=== PATIENT | female | born 1995 | race Caucasian/White ===

== ENCOUNTER 2017-07-06 15:12 | Emergency (ER) | payer OTHER ==
[2017-07-06 15:39] VITALS: TEMP 98.8
--- NOTE | 2017-07-06 16:17 | EDPHY ---
H & P Stated Complaint: L LOWER ABD PAIN/TREATED WITH LAXATIVES FROM [facility] Time Seen by Provider: 07/06/17 16:14 HPI/ROS: CHIEF COMPLAINT: Lower abdominal pain HISTORY OF PRESENT ILLNESS: The patient presents to the ED with acutely worsening chronic lower abdominal pain. The patient reports she has been struggling with symptoms for months. They have acutely worsened over the past several days. She was seen at the [facility] and had unremarkable laboratory testing, a normal urinalysis, negative test, negative GC and chlamydia test and negative pelvic exam. The patient had an abdominal x-ray which demonstrated possible constipation. She has been treated with laxatives for the past 2 days. The patient states in that time the pain has been more constant. It is localized to the hypogastric area and does radiate to the right mid quadrant and left mid quadrant. She denies vaginal bleeding or discharge. She denies additional symptoms of diarrhea. The patient denies significant past medical history. She has no history of abdominal surgery. REVIEW OF SYSTEMS: A comprehensive 10 point review of systems is otherwise negative aside from elements mentioned in the history of present illness. Source: Patient Exam Limitations: No limitations - Personal History LMP (Females 10-55): 1-7 Days Ago Current Tetanus/Diphtheria Vaccine: Yes - Medical/Surgical History Hx Asthma: No Hx Chronic Respiratory Disease: No Hx Diabetes: No Hx Cardiac Disease: No Hx Renal Disease: No Hx Cirrhosis: No Hx Alcoholism: No Hx HIV/AIDS: No Hx Splenectomy or Spleen Trauma: No Other PMH: none - Social History Smoking Status: Never smoked - Physical Exam Exam: General Appearance: Alert, no distress Eyes: Pupils equal and round no pallor or injection ENT, Mouth: Mucous membranes moist Respiratory: There are no retractions, lungs are clear to auscultation Cardiovascular: Regular rate and rhythm Gastrointestinal: Mild tenderness to palpation noted in the right mid quadrant , central abdomen left mid quadrant, no lower pelvic tenderness appreciated Neurological: A&O, normal motor function, normal sensory exam, normal cranial nerves Skin: Warm and dry, no rashes Musculoskeletal: Neck is supple nontender Extremities: symmetrical, full range of motion Constitutional: Initial Vital Signs Temperature (C) 37.1 C 07/06/17 15:36 Heart Rate 87 07/06/17 15:36 Respiratory Rate 18 07/06/17 15:36 Blood Pressure 103/73 07/06/17 15:36 O2 Sat (%) 96 07/06/17 15:36 O2 Delivery Mode Room Air Allergies/Adverse Reactions: No Known Allergies Allergy (Verified 07/06/17 15:35) Home Medications: Medication Instructions Recorded Dicyclomine [Bentyl 10 MG (*)] 10 mg PO QID PRN #20 cap 07/06/17 Sprintec 28 Day Tablet 07/06/17 Medical Decision Making ED Course/Re-evaluation: I reviewed the database obtained at the [facility] including a normal CBC, urinalysis, negative test, negative GC and chlamydia testing. Given the patient's mild vague abdominal tenderness a lack of an obvious diagnosis I did discuss risks and benefits of CT scanning. The patient consented in underwent a CT scan of the abdomen pelvis which demonstrated no obvious acute disease. At this point time I will prescribe the patient Bentyl. I have asked her to follow up with our area mechanic for any ongoing symptoms. She should return to the ED for markedly worsening symptoms or other concerns. The patient was reexamined by myself at 6:00 p.m.. I reviewed the results of her laboratory testing and CT scan. I answered her questions and discussed return precautions. Differential Diagnosis: Differential diagnosis considered includes mesenteric adenitis, inflammatory bowel disease, irritable bowel syndrome, appendicitis, ectopic , urinary tract infection Departure - Departure Disposition: Home, Routine, Self-Care Clinical Impression: Abdominal pain Condition: Good Instructions: Abdominal Pain (ED) Additional Instructions: 1. Your CT scan demonstrates no evidence of appendicitis or obvious intra- abdominal disease. 2. Please begin Bentyl as described for abdominal discomfort. 3. Please return to the ED for markedly worsening symptoms, fever, vomiting or other concerns. 4. Please follow up with the GI specialist you have been referred to for any ongoing symptoms. Referrals: Lanre Ledesma MD [Medical Doctor] - As per Instructions
[2017-07-06] MEDS ORDERED: IOPAMIDOL (ISOVUE-300) 100 ML BTL ONE (17:15)
[2017-07-06 18:26] VITALS: BP 113/65; PULSE 63; RESP 16; O2SAT 98
== END 2017-07-06 18:30 | disposition home or self-care (01) ==
DX: R10.9 Unspecified abdominal pain (principal)
CPT/HCPCS: Q9967

== ENCOUNTER 2017-07-11 09:39 | Emergency (ER) | payer OTHER ==
[2017-07-11 09:45] VITALS: RESP 16; O2SAT 97
[2017-07-11] MEDS ORDERED: NS 1,000 ML IV ONE (09:57)
[2017-07-11] MEDS ORDERED: DEXAMETHASONE 10 MG/ML VIAL IVP ONE (09:57)
[2017-07-11] MEDS ORDERED: KETOROLAC 30 MG/1 ML SDV IVP ONE (09:59)
--- NOTE | 2017-07-11 10:03 | EDPHY ---
H & P Stated Complaint: low back pain, SOB. Similar to symptoms she had on . Time Seen by Provider: 07/11/17 09:59 HPI/ROS: HPI: This is a 22-year-old female who presents with Chief Complaint: Bilateral lower back pain Location: Bilateral lumbar Quality: Moderate constant pain Duration: 1 week Signs and Symptoms: No fever, no chills, no nausea, no vomiting, no diarrhea, no chest pain, + shortness of breath when experiencing pain episodes, no dysuria , no vaginal bleeding, vaginal discharge Timing: Worsening Severity: Moderate to severe Context: Patient is generally healthy and presents today accompanied by her father with worsening over the last week, constant, nonradiating bilateral lumbar back pain to the point she is unable to get comfortable in any position. She denies any heavy lifting/injury/urinary symptoms. She has not had any fevers. She also complains of soreness in her throat lymph nodes as well as in her right upper arm. She reports shortness of breath when having the pain episodes. No recent long distance trips. She was seen at [facility] recently and had unremarkable laboratory testing as well as normal urinalysis negative negative GC chlamydia test as well as unremarkable pelvic exam. She was then seen in this ER on 07/06/2017 with complaints of lower vague abdominal pain; CT abdomen and pelvis was obtained at that time that showed no evidence of appendicitis or obvious intra-abdominal disease. He is given Bentyl for which she has taken and states that it is not relieving the pain. She denies having abdominal pain at this time as she complains of more lower back pain. She did not follow up with Gastroenterology per recommendation. Her father reports that she only has bowel movements 1-2 times per week. She also complains of decreased appetite. Denies any neck stiffness/headache/dizziness. Modifying Factors: See HPI Comment: ROS: see HPI Constitutional: No fever, no chills, no weight loss Eyes: No blurred vision Respiratory: + shortness of breath, no cough Cardiovascular: No chest pain Gastrointestinal: No nausea, no vomiting, no diarrhea Genitourinary: No dysuria Extremities: No myalgias Neurologic: No weakness, no numbness Skin: No rashes Hematologic: No bruising, no bleeding MEDICAL/SURGICAL/SOCIAL HISTORY: Medical history: Generally healthy. Does not take any regular medications. Surgical history: Denies Social history: College student. Strong social support from family. CONSTITUTIONAL: Adult white female who appears well, awake and alert, no obvious distress HEENT: Atraumatic and normocephalic, PERRL, EOMI. Tympanic membranes clear. Oropharynx clear, no exudate and moist pink mucosa. Airway patent. No lymphadenopathy. No meningismus. Cardiovascular: Normal S1/S2, regular rate, regular rhythm, without murmur rub or gallop. PULMONARY/CHEST: Symmetrical and nontender. Clear to auscultation bilaterally. Good air movement. No accessory muscle usage. ABDOMEN: Soft, nondistended, nontender, no rebound, no guarding, no peritoneal signs, no masses or organomegaly. No CVAT. EXTREMITIES: 2/2 pulses, no deformities, no clubbing, no cyanosis or edema. NEUROLOGICAL: no focal neuro deficits. GCS 15. SKIN: Warm and dry, no erythema. no rash. Good capillary refill. Source: Patient, Family (father) - Personal History LMP (Females 10-55): 8-14 Days Ago Current Tetanus Diphtheria and Acellular Pertussis (TDAP): Yes - Medical/Surgical History Hx Asthma: No Hx Chronic Respiratory Disease: No Hx Diabetes: No Hx Cardiac Disease: No Hx Renal Disease: No Hx Cirrhosis: No Hx Alcoholism: No Hx HIV/AIDS: No Hx Splenectomy or Spleen Trauma: No Other PMH: none - Social History Smoking Status: Never smoked Constitutional: Initial Vital Signs Temperature (C) 37 C 07/11/17 09:40 Heart Rate 67 07/11/17 09:40 Respiratory Rate 16 07/11/17 09:40 Blood Pressure 110/67 07/11/17 09:40 O2 Sat (%) 97 07/11/17 09:40 O2 Delivery Mode Room Air Allergies/Adverse Reactions: No Known Allergies Allergy (Verified 07/06/17 15:35) Home Medications: Medication Instructions Recorded Dicyclomine [Bentyl 10 MG (*)] 10 mg PO QID PRN #20 cap 07/06/17 Sprintec 28 Day Tablet 07/06/17 Magnesium Citrate [Magnesium 100 ml PO ONCE #100 ml 07/11/17 Citrate 300 ml (*)] Polyethylene Glycol 3350 [Miralax 17 gm PO DAILY #20 pkt 07/11/17 17 gm (*)] Medical Decision Making - Diagnostics Imaging Results: Imaging Impressions Lumbar Spine X-Ray 07/11/17 09:58 Impression: Nothing acute identified. ED Course/Re-evaluation: Labs, lumbar sacral x-rays, IV fluids, IV medications ordered Patient given 1 L NS, IV Decadron and IV Toradol D-dimer was added per father request to rule out blood clot. No hypoxia/ tachycardia. Perc rule makes PE low risk. 1050: Lumbar spine x-ray reviewed via PACs and shows normal vertebral alignment ; large stool burden noted. Labs reviewed and are completely unremarkable Patient was given a prescription for magnesium citrate x1 dose as well as MiraLax daily She is to follow up with Gastroenterology. School excuse provided per request. Differential Diagnosis: Diff diagnosis includes but is not limited to viral syndrome, infectious mononucleosis, lower back strain. - Data Points Laboratory Results: Laboratory Results 07/11/17 10:26 07/11/17 10:26 07/11/17 07/11/17 07/11/17 10:40 10: 10:26 WBC RBC Hgb Hct MCV MCH MCHC RDW Plt Count MPV Neut % (Auto) Lymph % (Auto) [place] % (Auto) Eos % (Auto) Baso % (Auto) Nucleat RBC Rel Count Absolute Neuts (auto) Absolute Lymphs (auto) Absolute Monos (auto) Absolute Eos (auto) Absolute Basos (auto) Absolute Nucleated RBC Immature Gran % Immature Gran # ESR D-Dimer Sodium 139 mEq/L mEq/L (134-144) Potassium 3.9 mEq/L mEq/L (3.5-5.2) Chloride 107 mEq/L mEq/L (97-110) Carbon Dioxide 21 mEq/l L mEq/l (22-31) Anion Gap 11 mEq/L mEq/L (8-16) BUN 10 mg/dL mg/dL (7-23) Creatinine 1.0 mg/dL mg/dL (0.6-1.0) Estimated GFR > 60 Glucose 83 mg/dL mg/dL (70-100) Calcium 9.6 mg/dL mg/dL (8.5-10.4) Total Bilirubin 0.6 mg/dL mg/dL (0.1-1.4) Conjugated Bilirubin 0.4 mg/dL mg/dL (0.0-0.5) Unconjugated Bilirubin 0.2 mg/dL mg/dL (0.0-1.1) AST 20 IU/L IU/L (14-46) ALT 16 IU/L IU/L (9-52) Alkaline Phosphatase 75 IU/L IU/L (38-126) C-Reactive Protein 6.3 mg/L mg/L (<10.0) Total Protein 7.1 g/dL g/dL (6.3-8.2) Albumin 3.7 g/dL g/dL (3.5-5.0) Beta HCG, Qual NEGATIVE Urine Color YELLOW Urine Appearance CLEAR Urine pH 5.0 (5.0-7.5) Ur Specific [place] 1.010 (1.002-1.030) Urine Protein NEGATIVE (NEGATIVE) Urine Ketones NEGATIVE (NEGATIVE) Urine Blood NEGATIVE (NEGATIVE) Urine Nitrate NEGATIVE (NEGATIVE) Urine Bilirubin NEGATIVE (NEGATIVE) Urine Urobilinogen NEGATIVE EU EU (0.2-1.0) Ur Leukocyte Esterase NEGATIVE (NEGATIVE) Urine Glucose NEGATIVE (NEGATIVE) Monoscreen NEGATIVE (NEGATIVE) 07/11/17 07/11/17 10:26 10:26 WBC 6.48 10^3/uL 10^3/uL (3.80-9.50) RBC 4.91 10^6/uL 10^6/uL (4.18-5.33) Hgb 15.3 g/dL g/dL (12.6-16.3) Hct 43.5 % % (38.0-47.0) MCV 88.6 fL fL (81.5-99.8) MCH 31.2 pg pg (27.9-34.1) MCHC 35.2 g/dL g/dL (32.4-36.7) RDW 12.5 % % (11.5-15.2) Plt Count 293 10^3/uL 10^3/uL (150-400) MPV 9.3 fL fL (8.7-11.7) Neut % (Auto) 47.5 % % (39.3-74.2) Lymph % (Auto) 43.1 % % (15.0-45.0) [place] % (Auto) 6.3 % % (4.5-13.0) Eos % (Auto) 2.2 % % (0.6-7.6) Baso % (Auto) 0.6 % % (0.3-1.7) Nucleat RBC Rel Count 0.0 % % (0.0-0.2) Absolute Neuts (auto) 3.08 10^3/uL 10^3/uL (1.70-6.50) Absolute Lymphs (auto) 2.79 10^3/uL 10^3/uL (1.00-3.00) Absolute Monos (auto) 0.41 10^3/uL 10^3/uL (0.30-0.80) Absolute Eos (auto) 0.14 10^3/uL 10^3/uL (0.03-0.40) Absolute Basos (auto) 0.04 10^3/uL 10^3/uL (0.02-0.10) Absolute Nucleated RBC 0.00 10^3/uL 10^3/uL (0-0.01) Immature Gran % 0.3 % % (0.0-1.1) Immature Gran # 0.02 10^3/uL 10^3/uL (0.00-0.10) ESR Pending D-Dimer < 0.27 ug/mLFEU ug/mLFEU (0.00-0.50) Sodium Potassium Chloride Carbon Dioxide Anion Gap BUN Creatinine Estimated GFR Glucose Calcium Total Bilirubin Conjugated Bilirubin Unconjugated Bilirubin AST ALT Alkaline Phosphatase C-Reactive Protein Total Protein Albumin Beta HCG, Qual Urine Color Urine Appearance Urine pH Ur Specific [place] Urine Protein Urine Ketones Urine Blood Urine Nitrate Urine Bilirubin Urine Urobilinogen Ur Leukocyte Esterase Urine Glucose Monoscreen Medications Given: Discontinued Medications Dexamethasone (Decadron Injection) 10 mg IVP EDNOW ONE Stop: 07/11/17 09:58 Last Admin: 07/11/17 10:30 Dose: 10 mg Sodium Chloride (Ns) 1,000 mls @ 0 mls/hr IV EDNOW ONE; Wide Open PRN Reason: Protocol Stop: 07/11/17 09:58 Last Admin: 07/11/17 10:29 Dose: 1,000 mls Ketorolac Tromethamine (Toradol) 30 mg IVP EDNOW ONE Stop: 07/11/17 10:00 Last Admin: 07/11/17 10:30 Dose: 30 mg Departure - Departure Disposition: Home, Routine, Self-Care Clinical Impression: Constipation Qualifiers: Constipation type: slow transit constipation Qualified Code(s): K59.01 - Slow transit constipation Condition: Good Instructions: Constipation (ED) Additional Instructions: Drink plenty fluids including electrolyte fluid replacement like Gatorade and Powerade to prevent dehydration. Eat a well-balanced diet that is rich in fruits and vegetables. Take MiraLax daily. When you get home take 100 mL of magnesium citrate. Please follow up with Gastroenterology in 5-7 days. Referrals: Festus Hoang MD [Medical Doctor] - As per Instructions Stand Alone Forms: School Excuse Prescriptions: Magnesium Citrate [Magnesium Citrate 300 ml (*)] 100 ml PO ONCE #100 ml Polyethylene Glycol 3350 [Miralax 17 gm (*)] 17 gm PO DAILY #20 pkt
[2017-07-11 10:33] LABS: % IMMATURE GRANULYOCYTES 0.3 % (0.0-1.1); ABSOLUTE IMMATURE GRANULOCYTES 0.02 10^3/uL (0.00-0.10); ADD DIFF? NO; ADD MORPH? NO; ADD SCAN? NO; ATYPICAL LYMPHOCYTE FLAG 10 (0-99); FRAGMENT RBC FLAG 0 (0-99); HEMATOCRIT 43.5 % (38.0-47.0); HEMOGLOBIN 15.3 g/dL (12.6-16.3); LEFT SHIFT FLG 0 (0-99); LIPEMIA HEMOLYSIS FLAG 90 (0-99); MEAN CELL HEMOGLOBIN 31.2 pg (27.9-34.1); MEAN CELL HEMOGLOBIN CONCENTR. 35.2 g/dL (32.4-36.7); MEAN CELL VOLUME 88.6 fL (81.5-99.8); MEAN PLATELET VOLUME 9.3 fL (8.7-11.7); PLATELET CLUMPS FLAG 40 (0-99); PLATELET COUNT 293 10^3/uL (150-400); RED BLOOD CELL COUNT 4.91 10^6/uL (4.18-5.33); RED CELL DISTRIBUTION WIDTH 12.5 % (11.5-15.2)
[2017-07-11 10:54] LABS: BHCG-QUALITATIVE NEGATIVE
[2017-07-11 10:55] LABS: MONO TEST NEGATIVE (NEGATIVE)
[2017-07-11 10:57] LABS: ALANINE AMINOTRANSFERASE 16 IU/L (9-52); ALBUMIN 3.7 g/dL (3.5-5.0); ALKALINE PHOSPHATASE 75 IU/L (38-126); ANION GAP 11 mEq/L (8-16); ASPARTATE AMINOTRANSFERASE 20 IU/L (14-46); BILIRUBIN,TOTAL 0.6 mg/dL (0.1-1.4); BILIRUBIN-CONJUGATED 0.4 mg/dL (0.0-0.5); BILIRUBIN-UNCONJUGATED 0.2 mg/dL (0.0-1.1); C-REACTIVE PROTEIN 6.3 mg/L (<10.0); CALCIUM 9.6 mg/dL (8.5-10.4); CARBON DIOXIDE 21 mEq/l (22-31); CHLORIDE 107 mEq/L (97-110); GLOMERULAR FILTRATION RATE > 60; GLUCOSE 83 mg/dL (70-100); POTASSIUM 3.9 mEq/L (3.5-5.2); SODIUM 139 mEq/L (134-144); TOTAL PROTEIN 7.1 g/dL (6.3-8.2)
[2017-07-11 11:02] LABS: COLOR YELLOW; LEUKOCYTE ESTERASE,URINE NEGATIVE (NEGATIVE); NITRITE,URINE NEGATIVE (NEGATIVE)
[2017-07-11 11:30] LABS: SEDIMENTATION RATE 6 MM/HR (0-20)
[2017-07-11 13:00] VITALS: BP 105/55; PULSE 57; TEMP 98.1
== END 2017-07-11 13:00 | disposition home or self-care (01) ==
DX: K59.01 Slow transit constipation (principal); E86.9 Volume depletion, unspecified
CPT/HCPCS: 96374; J1100; J1885